=== PATIENT | male | born 1995 | race Caucasian/White ===

== ENCOUNTER 2021-02-24 14:45 | Emergency (ER) | payer SELFPAY ==
[~2021-02-24] VITALS: Ht 182.9 cm; Wt 99.8 kg
[2021-02-24 14:52] VITALS: BP_SYST 123
[2021-02-24] MEDS ORDERED: NALOXONE HCL 2 MG/2 ML SYR ONE (15:16)
[2021-02-24] MEDS ORDERED: NACL 0.9% 1,000 ML IV ONE (16:30)
[2021-02-24 16:38] LABS: BASOPHILS % (AUTO) 0.3 % (0.0-2.0); EOSINOPHILS # (AUTO) 0.5 K/uL (0.0-0.4); EOSINOPHILS % (AUTO) 3.8 % (0.0-4.0); HEMATOCRIT 46.6 % (36-54); HEMOGLOBIN 15.8 g/dL (14.0-18.0); LYMPHOCYTES # (AUTO) 5.1 K/uL (1.0-5.5); LYMPHOCYTES % (AUTO) 36.3 % (20.5-51.5); MEAN CORPUSCULAR HEMOGLOBIN 32 pg (27-31); MEAN CORPUSCULAR HGB CONC 34 % (32-36); MEAN CORPUSCULAR VOLUME 93 fL (79.0-98.0); MONOCYTES # (AUTO) 1.2 K/uL (0.0-1.0); MONOCYTES % (AUTO) 8.5 % (1.7-9.3); NEUTROPHILS # (AUTO) 7.1 K/uL (1.8-7.7); NEUTROPHILS % (AUTO) 51.1 % (40.0-70.0); PLATELET COUNT (AUTO) 354 K/uL (130-430); RED BLOOD CELL COUNT(AUTO) 4.99 MIL/uL (4.2-6.2); RED CELL DISTRIBUTION WIDTH 14.8 % (9.0-15.0); WHITE BLOOD COUNT (AUTO) 13.9 K/uL (4.8-10.8)
[2021-02-24 16:40] LABS: ANION GAP 11 (5-15); CALCIUM 9.4 mg/dL (8.4-11.0); CHLORIDE 99 mmol/L (98-107); GLUCOSE 247 mg/dL (70-99); SODIUM SERUM 137 mmol/L (136-145); UREA NITROGEN, BLOOD 11 mg/dL (8-21)
[2021-02-24] MEDS ORDERED: NALOXONE HCL 2 MG/2 ML SYR IVP ONE (16:45)
[2021-02-24 16:46] LABS: ALANINE AMINOTRANSFERASE 40 U/L (12-78); ALBUMIN 4.6 g/dL (3.4-4.8); ASPARTATE AMINOTRANSFERASE 18 U/L (10-37); TOTAL BILIRUBIN 1.1 mg/dL (0.0-1.0)
[2021-02-24 16:48] LABS: ALCOHOL, BLOOD < 3 mg/dL (<10); GFR AFRICAN AMERICAN 95 mL/min (>90)
[2021-02-24 17:12] LABS: BILIRUBIN,URINE 1+ (NEGATIVE); COLOR,URINE YELLOW (YELLOW); GLUCOSE,URINE NEGATIVE (NEGATIVE); KETONES,URINE NEGATIVE (NEGATIVE); LEUKOCYTE ESTERASE ,URINE NEGATIVE (NEGATIVE); NITRITE, URINE NEGATIVE (NEGATIVE); PROTEIN URINE 2+ (NEGATIVE)
[2021-02-24 17:25] LABS: BARBITURATE, URINE NEGATIVE (NEG <=200); BENZODIAZEPINE, URINE POSITIVE (NEG <=150); CANNABINOID, URINE POSITIVE (NEG <=50); COCAINE, URINE POSITIVE (NEG <=150); METHAMPHETAMINES SCREEN,URINE POSITIVE (NEG <=500); OPIATE, URINE NEGATIVE (NEG <=100); PHENCYCLIDINE SCREEN,URINE NEGATIVE (NEG <=25); URINE AMPHETAMINE POSITIVE (NEG <=500); URINE METHADONE NEGATIVE (NEG <=200); URINE OXYCODONE SCREEN NEGATIVE (NEG <=100); URINE PROPOXYPHENE SCREEN NEGATIVE (NEG <=300)
[2021-02-24 17:26] LABS: UR TRICYCLIC ANTIDEPRESSANTS NEGATIVE (NEG <=300)
[2021-02-24 17:29] LABS: BLOOD, URINE TRACE (NEGATIVE)
[2021-02-24 17:30] LABS: CLARITY/URINE SLIGHTLY HAZY (CLEAR)
[2021-02-24 18:08] LABS: BACTERIA,URINE FEW /HPF (None Seen); RBC,URINE 0-3 /HPF (0-3)
[2021-02-24 18:09] LABS: FINE GRANULAR CASTS,URINE 0-10 /LPF (None Seen); MUCUS,URINE 3+ /LPF (None Seen); OTHER CASTS, URINE WBC CASTS 1+ /LPF (None Seen)
[2021-02-24 19:32] VITALS: BP_SYST 139
== END 2021-02-24 19:32 | disposition home or self-care (01) ==
LOC: SED 14:45
DX: T40.2X1A Poisoning by other opioids, accidental (unintentional), initial encounter (principal); R00.0 Tachycardia, unspecified; Y92.89 Other specified places as the place of occurrence of the external cause
CPT/HCPCS: 36415; 71045; 80053; 80307; 81000; 84484; 85025; 85610; 85730; 87086; 93005; 96361; 96374; 99285; G0482; J2310; J7030